=== PATIENT | male | born 1975 | race African-American/Black ===

== ENCOUNTER 2017-12-16 13:49 | Inpatient (IN) | payer OTHER ==
[~2017-12-16] VITALS: Ht 193 cm; Wt 146.5 kg
[2017-12-16 14:27] LABS: BASOPHIL % 0.6 % (0-2)
[2017-12-16 14:32] LABS: PLATELET COUNT 298 x10^3mcL (130-400)
[2017-12-16 14:43] LABS: RED CELL DISTRIBUTION WIDTH 15.5 % (11.5-14.5)
[2017-12-16 14:55] LABS: CALCIUM 8.1 mg/dL (8.5-10.1); CARBON DIOXIDE 27.1 mmol/L (21-32)
[2017-12-16 15:01] LABS: POTASSIUM SERUM 5.7 mmol/L (3.5-5.1)
[2017-12-16 15:02] LABS: CREATININE SERUM 9.5 mg/dL (0.7-1.3)
[2017-12-16 15:59] VITALS: BP 120/71
[2017-12-16 15:59] LABS: T3 TOTAL 0.92 ng/mL
[2017-12-16 16:00] LABS: FREE T4 0.82 ng/dL (0.76-1.46); FREE THYROXINE INDEX 1.9 ug/dL (1.4-4.5); T4(THYROXINE) 5.3 ug/dL (4.7-13.3)
[2017-12-16 16:06] VITALS: Ht 193 cm; Wt 146.5 kg
[2017-12-16 16:17] LABS: ALBUMIN 3.4 g/dL (3.4-5.0); BILIRUBIN TOTAL 0.5 mg/dL (0.20-1.00); MAGNESIUM 2.4 mg/dL (1.8-2.4); PHOSPHOROUS 4.6 mg/dL (2.5-4.9); TOTAL PROTEIN, SERUM 7.7 g/dL (6.4-8.2)
[2017-12-16 16:20] LABS: POTASSIUM SERUM 5.7 mmol/L (3.5-5.1)
[2017-12-16 16:21] LABS: CREATININE SERUM 9.3 mg/dL (0.7-1.3)
[2017-12-16] MEDS ORDERED: CRESTOR10 M1 PO (18:03)
[2017-12-16] MEDS ORDERED: NORCO1 TA2 PO (18:04)
[2017-12-16] MEDS ORDERED: PROCARDIA XL90 MG PO (18:04)
[2017-12-16] MEDS ORDERED: [UNRECOGNIZED DRUG - OTHER] PO (18:04)
[2017-12-16] MEDS ORDERED: LEVEMIR FLEX100 U/M1 SC (18:05)
[2017-12-16] MEDS ORDERED: NOVOLIN N100 U/ML SC (18:06)
[2017-12-16] MEDS ORDERED: [UNRECOGNIZED DRUG - OTHER] PO (18:07)
[2017-12-16] MEDS ORDERED: CARVEDILOL25 M1 PO (18:44)
[2017-12-17 05:23] VITALS: BP 135/73
[2017-12-17 06:25] LABS: BASOPHIL % 0.5 % (0-2); PLATELET COUNT 269 x10^3mcL (130-400)
[2017-12-17 06:44] LABS: RED CELL DISTRIBUTION WIDTH 15.8 % (11.5-14.5)
[2017-12-17 06:52] LABS: CALCIUM 7.8 mg/dL (8.5-10.1); CARBON DIOXIDE 28.5 mmol/L (21-32); PHOSPHOROUS 4.9 mg/dL (2.5-4.9)
[2017-12-17 07:19] LABS: CHOLESTEROL 132 mg/dL (<200); CHOLESTEROL/HDL RATIO 6.3; HDL CHOLESTEROL 21 mg/dL (40-60); TRIGLYCERIDES 666 mg/dL (<150)
[2017-12-17 09:55] VITALS: BP 120/65
[2017-12-17 11:19] VITALS: BP 120/65
== END 2017-12-17 12:46 | disposition home or self-care (01) | DRG 640 ==
LOC: ED 13:49 → DU 15:19 → MU 12-17 08:12
PROVIDERS: Emergency Medicine; Family Medicine
DX: E87.5 Hyperkalemia (principal); N18.6 End stage renal disease; N17.0 Acute kidney failure with tubular necrosis; I12.0 Hypertensive chronic kidney disease with stage 5 chronic kidney disease or end stage renal disease; E46 Unspecified protein-calorie malnutrition; E11.22 Type 2 diabetes mellitus with diabetic chronic kidney disease; E11.51 Type 2 diabetes mellitus with diabetic peripheral angiopathy without gangrene; E66.9 Obesity, unspecified; D63.1 Anemia in chronic kidney disease; E02 Subclinical iodine-deficiency hypothyroidism; Z99.2 Dependence on renal dialysis; Z71.3 Dietary counseling and surveillance; Z68.39 Body mass index [BMI] 39.0-39.9, adult; Z89.512 Acquired absence of left leg below knee
CPT/HCPCS: 82962; 83880; 84439; J1644; J1815; Q0092